=== PATIENT | male | born 1960 | race Caucasian/White ===

== ENCOUNTER 2017-01-11 03:03 | Emergency (ER) | payer OTHER, MEDICAID ==
[~2017-01-11] VITALS: Ht 170.2 cm; Wt 72.6 kg
[2017-01-11] MEDS ORDERED: fentaNYL INJECTION 100 MCG/2 ML AMP ONE ×2 (03:11→05:21)
[2017-01-11] MEDS ORDERED: NS IV 1000 ML 1,000 ML ONE (03:11)
[2017-01-11] MEDS ORDERED: ONDANSETRON 4 MG/2 ML (SDV) Z0FRAN ONE (03:11)
[2017-01-11] MEDS ORDERED: NS IV 1000 ML 1,000 ML IV ONE (03:17)
[2017-01-11] MEDS ORDERED: fentaNYL INJECTION 100 MCG/2 ML AMP IVP STA ×2 (03:17→05:29)
[2017-01-11 03:23] LABS: BASOPHILS % (AUTO) 0 % (0-10); EOSINOPHILS # (AUTO) 0.1 10^3/uL (0.0-0.3); EOSINOPHILS % (AUTO) 1 % (0-10); LYMPHOCYTES # (AUTO) 1.1 X 10^3 (1.0-4.0); LYMPHOCYTES % (AUTO) 19 % (12-44); MEAN CORPUSCULAR HEMOGLOBIN 32 PG (25-34); MEAN CORPUSCULAR HGB CONC 33 G/DL (32-36); MEAN CORPUSCULAR VOLUME 97 FL (80-99); MEAN PLATELET VOLUME 8.3 FL (7.4-10.4); MONOCYTES # (AUTO) 0.7 X 10^3 (0.0-1.0); MONOCYTES % (AUTO) 12 % (0-12); NEUTROPHILS # (AUTO) 3.8 X 10^3 (1.8-7.8); NEUTROPHILS % (AUTO) 68 % (42-75); PLATELET COUNT 199 10^3/uL (130-400); RED BLOOD COUNT 4.32 10^6/uL (4.35-5.85); RED CELL DISTRIBUTION WIDTH 14.7 % (10.0-14.5); WHITE BLOOD COUNT 5.6 10^3/uL (4.3-11.0)
--- NOTE | 2017-01-11 03:27 | ED General ---
General Stated Complaint: KIDNEY PAIN,STAGE 4 CA Source of Information: Patient Exam Limitations: No Limitations History of Present Illness Time Seen by Provider: 03:12 Initial Comments Here with report of left flank/kidney pain. States he feels like his kidney is stopped up and he is unable to urinate. Does have stage IV lung cancer with metastatic disease. Reports that he has one adrenal gland affected but is not sure which one. Does have history of kidney stones but states this does not feel like a kidney stone. Does report that the pain radiates down lower into the abdomen on the left side. Complains of nausea related to pain. Timing/Duration: 4-6 Hours Severity: Moderate, Severe Associated Systoms: No Chest Pain, No Cough, Nausea/Vomiting, Shortness of Air (chronic), No Weakness Allergies and Home Medications Allergies Coded Allergies: No Known Drug Allergies (Unverified , 01/11/17) Constitutional: see HPI, No chills, No fever EENTM: no symptoms reported Respiratory: see HPI, short of breath Cardiovascular: no symptoms reported Gastrointestinal: abdominal pain, nausea, No vomiting Genitourinary: see HPI, decreased output Musculoskeletal: see HPI, back pain, No joint swelling Skin: no symptoms reported Psychiatric/Neurological: No Symptoms Reported All Other Systems Reviewed Negative Unless Noted: Yes Past Kvtfwdt-Nkmnoe-Wwbugh Hx Patient Social History Alcohol Use: Denies Use Recreational Drug Use: No Smoking Status: Current Everyday Smoker Type Used: Cigarettes Recent Foreign Travel: No Surgeries History of Surgeries: Yes (brain set the brain) Respiratory History of Respiratory Disorde: No Cardiovascular History of Cardiac Disorders: No (Medical problems) Neurological History of Neurological Disord: No Genitourinary History of Genitourinary Disor: Yes Genitourinary Disorders: Kidney Stones Gastrointestinal History of Gastrointestinal Di: No Musculoskeletal History of Musculoskeletal Dis: No Cancer History of Cancer: Yes Cancer: Brain, Lung (()) Did You Recieve Any Treatments: Yes Type of Tx Receive: Chemotherapy, Surgical Intervention Psychosocial History of Psychiatric Problem: No Reviewed Nursing Assessment Reviewed/Agree w Nursing PMH: Yes Family Medical History Significant Family History: No Pertinent Family Hx Physical Exam Vital Signs Vital Sign - Last 12Hours 01/11/17 03:08 Temp 97.8 Pulse 101 Resp 24 B/P (MAP) 146/105 Pulse Ox 98 O2 Delivery Room Air Capillary Refill : General Appearance: WD/WN, Moderate Distress (pain related) HEENT: PERRL/EOMI, Pharynx Normal Neck: Non Tender, Supple Respiratory: Lungs Clear, Normal Breath Sounds Cardiovascular: Regular Rate, Rhythm, No Murmur Gastrointestinal: Non Tender, Soft Back: Normal Inspection, No CVA Tenderness, No Vertebral Tenderness Extremity: Normal Range of Motion, Non Tender Neurologic/Psychiatric: Alert, Oriented x3 Skin: Normal Color, Warm/Dry Progress/Results/Core Measures Results/Orders Lab Results Laboratory Tests Test 01/11/17 03:14 01/11/17 04:28 Range/Units White Blood Count 5.6 4.3-11.0 10^3/uL Red Blood Count 4.32 L 4.35-5.85 10^6/uL Hemoglobin 13.6 13.3-17.7 G/DL Hematocrit 42 40-54 % Mean Corpuscular Volume 97 80-99 FL Mean Corpuscular Hemoglobin 32 25-34 PG Mean Corpuscular Hemoglobin Concent 33 32-36 G/DL Red Cell Distribution Width 14.7 H 10.0-14.5 % Platelet Count 199 130-400 10^3/uL Mean Platelet Volume 8.3 7.4-10.4 FL Neutrophils (%) (Auto) 68 42-75 % Lymphocytes (%) (Auto) 19 12-44 % Monocytes (%) (Auto) 12 0-12 % Eosinophils (%) (Auto) 1 0-10 % Basophils (%) (Auto) 0 0-10 % Neutrophils # (Auto) 3.8 1.8-7.8 X 10^3 Lymphocytes # (Auto) 1.1 1.0-4.0 X 10^3 Monocytes # (Auto) 0.7 0.0-1.0 X 10^3 Eosinophils # (Auto) 0.1 0.0-0.3 10^3/uL Basophils # (Auto) 0.0 0.0-0.1 10^3/uL Sodium Level 138 135-145 MMOL/L Potassium Level 3.7 3.6-5.0 MMOL/L Chloride Level 103 98-107 MMOL/L Carbon Dioxide Level 22 21-32 MMOL/L Anion Gap 13 5-14 MMOL/L Blood Urea Nitrogen 8 7-18 MG/DL Creatinine 0.83 0.60-1.30 MG/DL Estimat Glomerular Filtration Rate > 60 BUN/Creatinine Ratio 10 Glucose Level 91 70-105 MG/DL Calcium Level 9.5 8.5-10.1 MG/DL Total Bilirubin 0.3 0.1-1.0 MG/DL Aspartate Amino Transf (AST/SGOT) 20 5-34 U/L Alanine Aminotransferase (ALT/SGPT) 17 0-55 U/L Alkaline Phosphatase 121 40-136 U/L Total Protein 7.2 6.4-8.2 GM/DL Albumin 3.6 3.2-4.5 GM/DL Urine Color YELLOW Urine Clarity CLEAR Urine pH 7 5-9 Urine Specific [place] 1.005 L 1.016-1.022 Urine Protein NEGATIVE NEGATIVE Urine Glucose (UA) NEGATIVE NEGATIVE Urine Ketones NEGATIVE NEGATIVE Urine Nitrite NEGATIVE NEGATIVE Urine Bilirubin NEGATIVE NEGATIVE Urine Urobilinogen NORMAL NORMAL MG/DL Urine Leukocyte Esterase NEGATIVE NEGATIVE Urine RBC (Auto) 5+ H NEGATIVE Urine RBC 2-5 H /HPF Urine WBC NONE /HPF Urine Crystals NONE /LPF Urine Bacteria NEGATIVE /HPF Urine Casts NONE /LPF Urine Mucus NEGATIVE /LPF Urine Culture Indicated NO My Orders Orders - CRISTY RINCON MD Fentanyl Injection (Sublimaze Injection (01/11/17 03:11) Ondansetron Injection (Zofran Injectio (01/11/17 03:11) Ns Iv 1000 Ml (Sodium Chloride 0.9%) (01/11/17 03:11) Cbc With Automated Diff (01/11/17 03:17) Comprehensive Metabolic Panel (01/11/17 03:17) Ua Culture If Indicated (01/11/17 03:17) Saline Lock/Iv-Start (01/11/17 03:17) Ns Iv 1000 Ml (Sodium Chloride 0.9%) (01/11/17 03:17) Fentanyl Injection (Sublimaze Injection (01/11/17 03:17) Ondansetron Injection (Zofran Injectio (01/11/17 03:30) Ct Chest/Abdomen/Pelvis W (01/11/17 03:46) Iohexol Injection (Omnipaque 350 Mg/Ml 1 (01/11/17 04:15) Ns (Ivpb) (Sodium Chloride 0.9% Ivpb Bag (01/11/17 04:15) Medications Given in ED Current Medications Medications Dose Ordered Sig/Anneliese Route Start Time Stop Time Status Last Admin Dose Admin Ondansetron HCl 8 mg ONCE ONCE IVP 01/11/17 03:30 01/11/17 03:31 DC 01/11/17 03:22 8 MG Sodium Chloride 1,000 ml @ 0 mls/hr Q0M ONCE IV 01/11/17 03:17 01/11/17 03:19 DC 01/11/17 03:21 1,000 MLS/HR Vital Signs/I&O Vital Sign - Last 12Hours 01/11/17 03:08 Temp 97.8 Pulse 101 Resp 24 B/P (MAP) 146/105 Pulse Ox 98 O2 Delivery Room Air Progress Note : Progress Note Seen and evaluated. IV, labs, UA, normal saline 1 L bolus, Zofran 8 mg IV and fentanyl 100 g IV ordered. Monitor patient. Pain markedly improved after fentanyl. 0450: Preliminary read on CT scan does show a stone in the distal left ureter near the bladder. Labs do not indicate serious dysfunction. We will repeat fentanyl dosing. Likely discharge home. I will write for outpatient breakthrough medicine of oxycodone due to new findings. Patient and family agree with plan. Departure Impression Impression: Primary Impression: Kidney stone on left side Additional Impression: Metastatic primary lung cancer Qualified Codes: C34.92 - Malignant neoplasm of unspecified part of left bronchus or lung Disposition: 01 HOME, SELF-CARE Condition: Stable Departure-Patient Inst. Decision time for Depature: 05:02 Referrals: VAN MEJIA MD (PCP) Primary Care Physician Patient Instructions: Kidney Stones (DC) Add. Discharge Instructions: Take medications as directed. Follow-up with your DrMickie in one to 2 days for recheck and further evaluation. Return for worse pain, fever, vomiting, weakness, breathing problems or other concerns as needed. Call [facility] today and discuss with them about the MRI that you're supposed to get and let them know that you had CT scan with contrast of the chest, abdomen and pelvis this morning. Drink plenty of fluids. Scripts Oxycodone HCl (Oxycodone HCl) 5 Mg Tablet 5 MG PO Q4H Y for BREAKTHROUGH PAIN, #15 TAB 0 Refills Prov: CRISTY RINCON MD 01/11/17 CRISTY RINCON MD Jan 11, 2017 03:27
[2017-01-11] MEDS ORDERED: ONDANSETRON 4 MG/2 ML (SDV) Z0FRAN IVP ONE (03:30)
[2017-01-11 03:41] LABS: ALANINE AMINOTRANSFERASE 17 U/L (0-55); ALBUMIN 3.6 GM/DL (3.2-4.5); ANION GAP 13 MMOL/L (5-14); ASPARTATE AMINO TRANSFERASE 20 U/L (5-34); BILIRUBIN,TOTAL 0.3 MG/DL (0.1-1.0); BLOOD UREA NITROGEN 8 MG/DL (7-18); BUN/CREATININE RATIO 10; CALCIUM 9.5 MG/DL (8.5-10.1); CARBON DIOXIDE 22 MMOL/L (21-32); CHLORIDE 103 MMOL/L (98-107); CREATININE SERUM 0.83 MG/DL (0.60-1.30); GFR ESTIMATED > 60; GLUCOSE 91 MG/DL (70-105); POTASSIUM 3.7 MMOL/L (3.6-5.0); SODIUM 138 MMOL/L (135-145); TOTAL PROTEIN 7.2 GM/DL (6.4-8.2)
[2017-01-11] MEDS ORDERED: IOHEXOL 350 MG/ML 100 ML (OMNIPAQUE 350) VIAL IV ONE (04:15)
[2017-01-11] MEDS ORDERED: NS 100 ML (IVPB) BAG IV ONE (04:15)
[2017-01-11 04:37] LABS: BILIRUBIN,URINE NEGATIVE (NEGATIVE); KETONES,URINE NEGATIVE (NEGATIVE); LEUKOCYTE ESTERASE ,URINE NEGATIVE (NEGATIVE); NITRITE,URINE NEGATIVE (NEGATIVE); PH,URINE 7 (5-9); PROTEIN,URINE NEGATIVE (NEGATIVE); UROBILINOGEN,URINE NORMAL (NORMAL)
[2017-01-11] MEDS ORDERED: OXYC-529 PO (05:04)
[2017-01-11 05:36] VITALS: BP 123/100
--- NOTE | 2017-01-11 07:59 | Diagnostic Imaging Report ---
PROCEDURE: CT chest, abdomen, and pelvis with contrast. TECHNIQUE: Multiple contiguous axial images were obtained through the chest, abdomen, and pelvis after the administration of intravenous contrast. INDICATION: Left-sided pain. History of lung cancer. COMPARISON: None. FINDINGS: Chest CT: There are innumerable scattered pulmonary nodules and masses throughout both lungs. The largest most dominant lesion is seen within the left lung apex measuring about 4.5 cm in size. This lesion involves and is causing some destructive change of the adjacent left second and third rib. Others range in size from a few millimeters up to several centimeters. Findings are highly suggestive of diffuse metastatic disease with possible primary lesion in the left upper lobe. There are multiple enlarged mediastinal and hilar lymph nodes. There is a 3.8-cm x 2.2-cm right hilar lymph node. The largest abnormal mediastinal lymph node appears low density and is seen within the prevascular region measuring 1.7 cm x 3.9 cm. There is an enlarged azygoesophageal recess node and a right cardiophrenic node. There is no pneumothorax or pleural fluid. Thoracic aorta appears unremarkable. Abdomen/pelvis CT: There is diffuse hepatic steatosis. No focal hepatic mass is seen. The portal vein enhances normally. The gallbladder is partially contracted which is nonspecific but may be postprandial. The pancreas and spleen appear unremarkable. There is a heterogeneous 3.7-cm left adrenal mass concerning for metastatic disease. The right adrenal gland appears unremarkable. There is a 2-mm stone in the distal left ureter at the ureterovesical junction with mild left hydroureter and hydronephrosis. There is a nonspecific low-density lesion in the superior left renal cortex which appears greater than fluid density. This may represent a high-density cyst; however, a renal cell neoplasm or metastatic lesion would be difficult to entirely exclude. There is a small fat-containing umbilical hernia. There is no evidence of appendicitis or other acute focal inflammatory process in the pelvis. There is no free air, adenopathy, or ascites in the abdomen. There is atherosclerosis of the abdominal aorta. There are degenerative changes in the spine. IMPRESSION: 1. In the chest there are innumerable pulmonary nodules and masses throughout both lungs concerning for diffuse metastatic disease. The most dominant lesion measures 4.5 cm seen within the left upper lobe. There are also enlarged mediastinal and hilar nodes also concerning for malignancy. The left upper lobe masses involving the left second and third rib with bony destruction. 2. A 3.7-cm left adrenal mass concerning for metastatic disease. 3. A 2-mm stone in the left ureter at the ureterovesical junction with mild obstructive changes. Indeterminate small hypodense lesion, superior left renal cortex, as described. 4. Diffuse hepatic steatosis. Agree with [facility] interpretation. Dictated by: Dictated on workstation # [id number]
[2017-01-24] MEDS ORDERED: PRD20T PO (08:09)
[2017-01-24] MEDS ORDERED: METR500T PO (08:09)
== END 2017-01-11 05:36 | disposition home or self-care (01) ==
LOC: ER 03:07
DX: N20.0 Calculus of kidney (principal); C34.90 Malignant neoplasm of unspecified part of unspecified bronchus or lung; C79.31 Secondary malignant neoplasm of brain; F17.210 Nicotine dependence, cigarettes, uncomplicated
CPT/HCPCS: 36415; 71260; 74177; 80053; 81000; 85025; 96361; 96374; 96375; 96376

== ENCOUNTER 2017-01-21 14:25 | Inpatient (IN) | payer OTHER, MEDICAID ==
[~2017-01-21] VITALS: Ht 170.2 cm; Wt 70.8 kg
[~2017-01-21 14:25] MED LIST: OXYC-529 PO
[2017-01-21] MEDS ORDERED: fentaNYL INJECTION 100 MCG/2 ML AMP IVP ONE ×2 (15:00→16:00)
[2017-01-21] MEDS ORDERED: ONDANSETRON 4 MG/2 ML (SDV) Z0FRAN IVP ONE (15:00)
[2017-01-21] MEDS ORDERED: NS IV 1000 ML 1,000 ML IV ONE (15:00)
[2017-01-21 15:14] LABS: BASOPHILS % (AUTO) 0 % (0-10); EOSINOPHILS # (AUTO) 0.1 10^3/uL (0.0-0.3); EOSINOPHILS % (AUTO) 1 % (0-10); LYMPHOCYTES # (AUTO) 0.8 X 10^3 (1.0-4.0); LYMPHOCYTES % (AUTO) 8 % (12-44); MEAN CORPUSCULAR HEMOGLOBIN 32 PG (25-34); MEAN CORPUSCULAR HGB CONC 34 G/DL (32-36); MEAN CORPUSCULAR VOLUME 94 FL (80-99); MEAN PLATELET VOLUME 8.9 FL (7.4-10.4); MONOCYTES # (AUTO) 0.5 X 10^3 (0.0-1.0); MONOCYTES % (AUTO) 5 % (0-12); NEUTROPHILS # (AUTO) 8.6 X 10^3 (1.8-7.8); NEUTROPHILS % (AUTO) 86 % (42-75); PLATELET COUNT 269 10^3/uL (130-400); RED BLOOD COUNT 5.06 10^6/uL (4.35-5.85); RED CELL DISTRIBUTION WIDTH 14.4 % (10.0-14.5)
[2017-01-21 15:41] LABS: EOSINOPHILS % (MANUAL) 2 %; LYMPHOCYTES % (MANUAL) 12 %; NEUTROPHILS % (MANUAL) 79 %; REACTIVE LYMPHOCYTES 2 %
[2017-01-21 16:05] LABS: ALANINE AMINOTRANSFERASE 37 U/L (0-55); ALBUMIN 3.5 GM/DL (3.2-4.5); ANION GAP 12 MMOL/L (5-14); ASPARTATE AMINO TRANSFERASE 24 U/L (5-34); BILIRUBIN,TOTAL 0.8 MG/DL (0.1-1.0); BLOOD UREA NITROGEN 16 MG/DL (7-18); BUN/CREATININE RATIO 20; CALCIUM 9.1 MG/DL (8.5-10.1); CARBON DIOXIDE 20 MMOL/L (21-32); CHLORIDE 101 MMOL/L (98-107); CREATININE SERUM 0.81 MG/DL (0.60-1.30); GFR ESTIMATED > 60; GLUCOSE 121 MG/DL (70-105); MAGNESIUM 1.8 MG/DL (1.8-2.4); SODIUM 133 MMOL/L (135-145); TOTAL PROTEIN 7.2 GM/DL (6.4-8.2)
[2017-01-21] MEDS ORDERED: NS 100 ML (IVPB) BAG IV ONE (17:00)
[2017-01-21] MEDS ORDERED: IOHEXOL 350 MG/ML 100 ML (OMNIPAQUE 350) VIAL IV ONE (17:00)
[2017-01-21 17:19] LABS: BILIRUBIN,URINE NEGATIVE (NEGATIVE); KETONES,URINE 1+ (NEGATIVE); LEUKOCYTE ESTERASE ,URINE 1+ (NEGATIVE); NITRITE,URINE NEGATIVE (NEGATIVE); PH,URINE 5 (5-9); PROTEIN,URINE 2+ (NEGATIVE); UROBILINOGEN,URINE 4 MG/DL (NORMAL)
--- NOTE | 2017-01-21 17:28 | ED Abdominal Pain ---
General Chief Complaint: Abdominal/GI Problems Stated Complaint: CONSTIPATED Nursing Triage Note: c/o constipation, patient reports having an enema yesterday with minimal results Sepsis Screen: No Definite Risk Source of Information: Patient, Old Records Exam Limitations: No Limitations History of Present Illness Time Seen By Provider: 14:54 Initial Comments This 56-year-old man presents to emergency room with complaints of left lower quadrant pain which she presumes is from constipation. This woke him about an hour ago and it was severe. He is in distress because of the pain on arrival. Patient has metastatic lung cancer. He has metastases throughout the lungs, in the ribs, and adrenal gland. Patient also had a CT performed January 11 of the chest, abdomen and pelvis that additionally noted a small ureteral stone on the left causing mild obstruction. He believes he passed that stone already. Patient last had a small bowel movement on , January 17. He received an enema yesterday with minimal results. He had vomiting today which he believes contained some blood. Patient is currently receiving chemotherapy treatments at [facility] which she reports her palliative. Dr. Jacobo is his primary care provider. Allergies and Home Medications Allergies Coded Allergies: No Known Drug Allergies (Unverified , 01/11/17) Home Medications Oxycodone HCl 5 Mg Tablet, 5 MG PO Q4H PRN for BREAKTHROUGH PAIN, #15 Ref 0 Prescribed by: CRISTY RINCON on 01/11/17 0504 Review of Systems Constitutional: no symptoms reported EENTM: No Symptoms Reported Respiratory: No Symptoms Reported Cardiovascular: No Symptoms Reported Gastrointestinal: See HPI Genitourinary: See HPI Musculoskeletal: no symptoms reported Skin: no symptoms reported Psychiatric/Neurological: No Symptoms Reported Endocrine: No Symptoms Reported Hematologic/Lymphatic: See HPI Past Ihmlpde-Weblcx-Iejsvs Hx Patient Social History Alcohol Use: Denies Use Recreational Drug Use: No Smoking Status: Current Everyday Smoker Type Used: Cigarettes Recent Foreign Travel: No Contact w/Someone Who Travel: No Recent Infectious Disease Expo: No Surgeries History of Surgeries: Yes (anal fistula surgeries) Surgeries: Orthopedic (right ankle fracture repair with plates and screws) Respiratory History of Respiratory Disorde: Yes (lung cancer) Cardiovascular History of Cardiac Disorders: No (Medical problems) Neurological History of Neurological Disord: No Genitourinary History of Genitourinary Disor: Yes Genitourinary Disorders: Kidney Stones Gastrointestinal History of Gastrointestinal Di: Yes Gastrointestinal Disorders: Chronic Constipation Musculoskeletal History of Musculoskeletal Dis: No Endocrine History of Endocrine Disorders: No Cancer History of Cancer: Yes Cancer: Brain, Lung Did You Recieve Any Treatments: Yes Type of Tx Receive: Chemotherapy, Surgical Intervention Psychosocial History of Psychiatric Problem: No Family Medical History Significant Family History: No Pertinent Family Hx Physical Exam Vital Signs VS - Last 72 Hours, by Label 01/21/17 14:30 Temp 96.7 Pulse 110 Resp 18 B/P (MAP) 141/111 Pulse Ox 94 Capillary Refill : Less Than 3 Seconds General Appearance: WD/WN, moderate distress HEENT: PERRL/EOMI, other (partial hair loss on the right) Neck: normal inspection Respiratory: lungs clear, normal breath sounds, no respiratory distress, no accessory muscle use Cardiovascular: regular rate, rhythm, no edema, no murmur Gastrointestinal: soft, abnormal bowel sounds (decreased bowel sounds), tenderness (left lower quadrant) Extremities: normal inspection, no pedal edema Male: normal genitalia, No no hernia, No erythema, No inguinal tenderness, No testicular tenderness Neurologic/Psychiatric: ben day artist II-XII nml as tested, no motor/sensory deficits, alert, normal mood/affect, oriented x 3 Skin: normal color, warm/dry Progress/Results/Core Measures Results/Orders Lab Results Laboratory Tests Test 01/21/17 13:40 01/21/17 15:05 01/21/17 17:08 01/21/17 17:50 Range/Units Lipase 19 8-78 U/L White Blood Count 10.0 4.3-11.0 10^3/uL Red Blood Count 5.06 4.35-5.85 10^6/uL Hemoglobin 16.1 13.3-17.7 G/DL Hematocrit 47 40-54 % Mean Corpuscular Volume 94 80-99 FL Mean Corpuscular Hemoglobin 32 25-34 PG Mean Corpuscular Hemoglobin Concent 34 32-36 G/DL Red Cell Distribution Width 14.4 10.0-14.5 % Platelet Count 269 130-400 10^3/uL Mean Platelet Volume 8.9 7.4-10.4 FL Neutrophils (%) (Auto) 86 H 42-75 % Lymphocytes (%) (Auto) 8 L 12-44 % Monocytes (%) (Auto) 5 0-12 % Eosinophils (%) (Auto) 1 0-10 % Basophils (%) (Auto) 0 0-10 % Neutrophils # (Auto) 8.6 H 1.8-7.8 X 10^3 Lymphocytes # (Auto) 0.8 L 1.0-4.0 X 10^3 Monocytes # (Auto) 0.5 0.0-1.0 X 10^3 Eosinophils # (Auto) 0.1 0.0-0.3 10^3/uL Basophils # (Auto) 0.0 0.0-0.1 10^3/uL Neutrophils % (Manual) 79 % Lymphocytes % (Manual) 12 % Monocytes % (Manual) 5 % Eosinophils % (Manual) 2 % Reactive Lymphocytes 2 % Blood Morphology Comment NORMAL Sodium Level 133 L 135-145 MMOL/L Potassium Level 4.0 3.6-5.0 MMOL/L Chloride Level 101 98-107 MMOL/L Carbon Dioxide Level 20 L 21-32 MMOL/L Anion Gap 12 5-14 MMOL/L Blood Urea Nitrogen 16 7-18 MG/DL Creatinine 0.81 0.60-1.30 MG/DL Estimat Glomerular Filtration Rate > 60 BUN/Creatinine Ratio 20 Glucose Level 121 H 70-105 MG/DL Calcium Level 9.1 8.5-10.1 MG/DL Magnesium Level 1.8 1.8-2.4 MG/DL Total Bilirubin 0.8 0.1-1.0 MG/DL Aspartate Amino Transf (AST/SGOT) 24 5-34 U/L Alanine Aminotransferase (ALT/SGPT) 37 0-55 U/L Alkaline Phosphatase 112 40-136 U/L Total Protein 7.2 6.4-8.2 GM/DL Albumin 3.5 3.2-4.5 GM/DL Urine Color CATA H Urine Clarity CLEAR Urine pH 5 5-9 Urine Specific [place] 1.020 1.016-1.022 Urine Protein 2+ H NEGATIVE Urine Glucose (UA) 1+ H NEGATIVE Urine Ketones 1+ H NEGATIVE Urine Nitrite NEGATIVE NEGATIVE Urine Bilirubin NEGATIVE NEGATIVE Urine Urobilinogen 4 H NORMAL MG/DL Urine Leukocyte Esterase 1+ H NEGATIVE Urine RBC (Auto) 3+ H NEGATIVE Urine RBC NONE /HPF Urine WBC 0-2 /HPF Urine Crystals NONE /LPF Urine Bacteria TRACE /HPF Urine Casts NONE /LPF Urine Mucus MODERATE H /LPF Urine Culture Indicated NO Prothrombin Time 12.5 12.2-14.7 SEC INR Comment 0.9 0.8-1.4 Activated Partial Thromboplast Time 28 24-35 SEC My Orders Orders - ROYA ZIEGLER MD Cbc With Automated Diff (01/21/17 15:00) Comprehensive Metabolic Panel (01/21/17 15:00) Magnesium (01/21/17 15:00) Ua Culture If Indicated (01/21/17 15:00) Saline Lock/Iv-Start (01/21/17 15:00) Ns Iv 1000 Ml (Sodium Chloride 0.9%) (01/21/17 15:00) Ondansetron Injection (Zofran Injectio (01/21/17 15:00) Fentanyl Injection (Sublimaze Injection (01/21/17 15:00) Manual Differential (01/21/17 15:05) Lipase (01/21/17 15:44) Fentanyl Injection (Sublimaze Injection (01/21/17 16:00) Ct Abdomen/Pelvis W (01/21/17 16:28) Iohexol Injection (Omnipaque 350 Mg/Ml 1 (01/21/17 17:00) Ns (Ivpb) (Sodium Chloride 0.9% Ivpb Bag (01/21/17 17:00) Protime With Inr (01/21/17 17:28) Partial Thromboplastin Time (01/21/17 17:28) Morphine Injection (Morphine Injection (01/21/17 18:00) Ketorolac Injection (Toradol Injection) (01/21/17 18:15) Medications Given in ED Current Medications Medications Dose Ordered Sig/Anneliese Route Start Time Stop Time Status Last Admin Dose Admin Fentanyl Citrate 100 mcg ONCE ONCE IVP 01/21/17 15:00 01/21/17 15:02 DC 01/21/17 15:10 100 MCG Fentanyl Citrate 100 mcg ONCE ONCE IVP 01/21/17 16:00 01/21/17 16:01 DC 01/21/17 16:01 100 MCG Iohexol 100 ml ONCE ONCE IV 01/21/17 17:00 01/21/17 17:01 DC 01/21/17 17:08 100 ML Morphine Sulfate 8 mg ONCE ONCE IVP 01/21/17 18:00 01/21/17 18:01 DC 01/21/17 18:04 8 MG Ondansetron HCl 8 mg ONCE ONCE IVP 01/21/17 15:00 01/21/17 15:02 DC 01/21/17 15:10 8 MG Sodium Chloride 100 ml ONCE ONCE IV 01/21/17 17:00 01/21/17 17:01 DC 01/21/17 17:09 80 ML Sodium Chloride 1,000 ml @ 0 mls/hr Q0M ONCE IV 01/21/17 15:00 01/21/17 15:02 DC 01/21/17 15:10 0 MLS/HR Vital Signs/I&O Vital Sign - Last 12Hours 01/21/17 14:30 Temp 96.7 Pulse 110 Resp 18 B/P (MAP) 141/111 Pulse Ox 94 Blood Pressure Mean: 121 Progress Note #1: Time: 16:30 Progress Note Patient received 2 doses of fentanyl 100 g to control his pain. Labs revealed no significant abnormalities. CT of the abdomen and pelvis was ordered for further evaluation. Progress Note #2: Progress Note Patient's pain did rebound prior to admission. Morphine 8 mg IV was administered which did calm his pain. Diagnostic Imaging Diagonstic Imaging: CT Plain Films/CT/US/NM/MRI: abdomen, pelvis Comments CT abdomen and pelvis viewed by me and report reviewed. See report below: NAME: ESTRELLA CASTELLANOS MED REC#: [id number] PT STATUS: REG ER : 1960 PHYSICIAN: ROYA ZIEGLER MD ADMIT DATE: 01/21/17/ER Signed Date of Exam: 01/21/17 CT ABDOMEN/PELVIS W PROCEDURE: CT abdomen and pelvis with contrast. TECHNIQUE: Multiple contiguous axial images were obtained through the abdomen and pelvis after administration of intravenous contrast. INDICATION: Left-sided abdominal pain, possible kidney stone. COMPARISON: CT chest 01/11/17. FINDINGS: Known pulmonary masses and nodules are seen in both lung bases. There is stable-appearing right hilar lymphadenopathy. Known left adrenal mass is again present and unchanged. The liver, spleen, gallbladder, pancreas, adrenal glands, kidneys, vascular structures are grossly unremarkable. There is some new circumferential thickening of a few small bowel loops in the mid left anterior abdomen with some associated edema in the surrounding mesentery. This could represent a focal inflammatory or infectious process. There is no bowel obstruction. The small bowel loops in this region are slightly dilated indicating reactive ileus. The colon and distal small bowel are grossly normal. There is no free air, free fluid or abscess. There is prostate enlargement. Distal ureters and urinary bladder are grossly unremarkable. Benign right posterolateral 8 mm urinary bladder diverticulum is present. No pelvic lymphadenopathy is seen. Osseous structures are age-appropriate. IMPRESSION: 1. Focal left mid anterior abdomen small bowel wall thickening and inflammatory change, possibly inflammatory bowel disease. Doubt this represents vascular etiology given the lack of atherosclerotic disease within the SMA or aorta. 2. Reactive small bowel ileus. 3. No obstruction, free air, free fluid or abscess. 4. Known left adrenal mass, pulmonary nodules and masses and hilar lymphadenopathy. 5. Prostate enlargement. Dictated by: Dictated on workstation # [id number] Dict: 01/21/171723 Trans: 01/21/171751 Interpreted by: CHANDAN PERES Electronically signed by: CHANDAN PERES 01/21/17 175 Departure Communication (Admissions) Time/Spoke to Admitting Phy: 18:[address] Jacobo agrees to admission for observation and pain control. Labs and CT were reviewed with her. She requests ELECTRICIAN RESEARCH for pain control in addition to the Toradol. ELECTRICIAN RESEARCH orders were added to the bridging orders. Impression Impression: Primary Impression: Intractable abdominal pain Additional Impressions: Nausea and vomiting Qualified Codes: R11.2 - Nausea with vomiting, unspecified Metastatic cancer Ileus Disposition: ADMITTED INPATIENT Condition: Improved Admissions Decision to Admit Reason: Admit from ER (General) Decision to Admit/Date: Jan 21, 2017 Time/Decision to Admit Time: 18:10 Departure-Patient Inst. Referrals: VAN JACOBO MD (PCP/Family) Primary Care Physician ROYA ZIEGLER MD Jan 21, 2017 17:28
[2017-01-21 17:29] LABS: WBC,URINE 0-2 /HPF
--- NOTE | 2017-01-21 17:37 | Diagnostic Imaging Report ---
PROCEDURE: CT abdomen and pelvis with contrast. TECHNIQUE: Multiple contiguous axial images were obtained through the abdomen and pelvis after administration of intravenous contrast. INDICATION: Left-sided abdominal pain, possible kidney stone. COMPARISON: CT chest 01/11/17. FINDINGS: Known pulmonary masses and nodules are seen in both lung bases. There is stable-appearing right hilar lymphadenopathy. Known left adrenal mass is again present and unchanged. The liver, spleen, gallbladder, pancreas, adrenal glands, kidneys, vascular structures are grossly unremarkable. There is some new circumferential thickening of a few small bowel loops in the mid left anterior abdomen with some associated edema in the surrounding mesentery. This could represent a focal inflammatory or infectious process. There is no bowel obstruction. The small bowel loops in this region are slightly dilated indicating reactive ileus. The colon and distal small bowel are grossly normal. There is no free air, free fluid or abscess. There is prostate enlargement. Distal ureters and urinary bladder are grossly unremarkable. Benign right posterolateral 8 mm urinary bladder diverticulum is present. No pelvic lymphadenopathy is seen. Osseous structures are age-appropriate. IMPRESSION: 1. Focal left mid anterior abdomen small bowel wall thickening and inflammatory change, possibly inflammatory bowel disease. Doubt this represents vascular etiology given the lack of atherosclerotic disease within the SMA or aorta. 2. Reactive small bowel ileus. 3. No obstruction, free air, free fluid or abscess. 4. Known left adrenal mass, pulmonary nodules and masses and hilar lymphadenopathy. 5. Prostate enlargement. Dictated by: Dictated on workstation # [id number]
[2017-01-21] MEDS ORDERED: morphine INJ 10 MG/ML 1ML (SYR OR VIAL) IVP ONE (18:00)
[2017-01-21 18:06] LABS: INR 0.9 (0.8-1.4); PROTHROMBIN TIME PATIENT 12.5 SEC (12.2-14.7)
[2017-01-21] MEDS ORDERED: KETOROLAC 30 MG/ML VIAL IVP ONE (18:15)
[2017-01-21] MEDS ORDERED: morphine PCA 30 MG/30 ML VIAL IV PRN (19:00)
[2017-01-21] MEDS ORDERED: NS IV 1000 ML 1,000 ML IV SCH (19:24)
[2017-01-21] MEDS ORDERED: diphenhydrAMINE 50 MG/ML INJ (BENADRYL) IV PRN ×2 (19:30)
[2017-01-21] MEDS ORDERED: ONDANSETRON 4 MG/2 ML (SDV) Z0FRAN IV PRN ×2 (19:30)
[2017-01-21] MEDS ORDERED: NALOXONE 0.4 MG/ML 1 ML (NARCAN) VIAL IV PRN ×2 (19:30)
[2017-01-21] MEDS ORDERED: NS IV 500 ML PCA CARRIER FLUID IV SCH (19:30)
[2017-01-21] MEDS ORDERED: KETOROLAC 30 MG/ML VIAL IV PRN (19:30)
[2017-01-21] MEDS ORDERED: METOCLOPRAMIDE INJ 10 MG/2 ML (REGLAN) IV PRN ×2 (19:30)
[2017-01-21] MEDS: PANTOPRAZOLE 40 MG/10 ML (PROTONIX) VIAL IV SCH (19:56)
[2017-01-21] MEDS: D5 1/2 NS W/KCL 20 MEQ/L 1,000 ML IV SCH (19:57)
[2017-01-21] MEDS: morphine PCA 30 MG/30 ML VIAL IV PRN (20:06)
[2017-01-22 00:22] VITALS: BP 119/73
[2017-01-22] MEDS: D5 1/2 NS W/KCL 20 MEQ/L 1,000 ML IV SCH ×3 (04:19→21:31)
[2017-01-22 04:24] VITALS: BP 116/74
[2017-01-22] MEDS: morphine PCA 30 MG/30 ML VIAL IV PRN ×2 (07:15→20:00)
[2017-01-22 07:25] VITALS: BP 119/79
[2017-01-22] MEDS: SENNA W/DOCUSATE (SENOKOT S) TABLET PO SCH (08:31)
[2017-01-22] MEDS: PANTOPRAZOLE 40 MG/10 ML (PROTONIX) VIAL IV SCH ×2 (08:31→21:27)
[2017-01-22] MEDS ORDERED: FOLI1TAB24 PO (08:55)
[2017-01-22] MEDS ORDERED: HYDR-3820 PO (08:55)
[2017-01-22] MEDS ORDERED: OXYC-529 PO (08:55)
[2017-01-22] MEDS ORDERED: SENN-1 PO (09:00)
[2017-01-22] MEDS ORDERED: SENNA W/DOCUSATE (SENOKOT S) TABLET PO SCH (09:00)
[2017-01-22] MEDS ORDERED: FOLIC ACID 1 MG TAB PO NR (09:15)
--- NOTE | 2017-01-22 09:16 | History & Physicial ---
History of Present Illness History of Present Illness Reason for visit/HPI PT IS A 56 Y/O MALE WHO IS KNOWN TO ME FROM CLINIC. HE HAS HISTORY OF NEWLY DIAGNOSED METASTATIC LUNG CANCER. HE HAS METASTATIC DISEASE TO HIS BRAIN, ABDOMEN, LYMPH SYSTEM. HE STATES THAT HE WAS NOT FEELING WELL ON SATURDAY AFTER RETURNING TO HOME FROM HIS CHEMOTHERAPY. HE STATES THAT HE WAS FEELING "OFF" ON SATURDAY AND SATURDAY AND SATURDAY. HE STATES THAT HE HAD STARTED TO DEVELOP ABDOMINAL PAIN ON THE LEFT , THOUGHT PERHAPS THAT HE HAD A KIDNEY STONE, BUT WAS FOUND TO HAVE AN ILEUS AND ENTERITIS ON CT SCAN THROUGH THE EMERGENCY DEPARTMENT. HE WAS UNABLE TO GO HOME DUE TO SEVERE PAIN, AND WAS ADMITTED TO THE HOSPITAL FOR IV PAIN MEDICATION , IV HYDRATION, AND MONITORING OF ABDOMINAL SYMPTOMS. Date of Admission Jan 21, 2017 at 18:28 Time Seen by Provider: 08:45 Attending Physician Van Jacobo MD Admitting Physician Van Jacobo MD Consult Allergies and Home Medications Allergies Coded Allergies: No Known Drug Allergies (Unverified , 01/11/17) Home Medications Folic Acid 1 Mg Tablet, 1 MG PO DAILY, (Reported) Hydrocodone/Acetaminophen 1 Each Tablet, 1-2 TAB PO Q6H PRN for PAIN-MODERATE, ( Reported) Oxycodone HCl 5 Mg Tablet, 5 MG PO Q4H PRN for BREAKTHROUGH PAIN, (Reported) Sennosides/Docusate Sodium 1 Each Tablet, 1 TAB PO DAILY PRN for CONSTIPATION- 6TH LINE, (Reported) Past Hxuhprq-Tgnqnr-Nigede Hx Patient Social History Marrital Status: (IN THE PROCESS OF DIVORCE), Living Status: LIVES WITH HIS MOM IN [place] Employed/Student: unemployed (DUE TO METASTATIC LUNG CANCER - 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) Alcohol Use: Denies Use Recreational Drug Use: No Smoking Status: Current Everyday Smoker Type Used: Cigarettes 2nd Hand Smoke Exposure: Yes Physical Abuse Screen: No Sexual Abuse: No Recent Foreign Travel: No Contact w/other who traveled: No Recent Infectious Disease Expo: No Seasonal Allergies Seasonal Allergies: No Surgeries Yes (anal fistula surgeries) Orthopedic (right ankle fracture repair with plates and screws) Respiratory Yes (lung cancer) Currently Using CPAP: No Currently Using BIPAP: No Cardiovascular No Neurological Yes (BRAIN TUMORS) Reproductive System Hx Reproductive Disorders: No Sexually Transmitted Disease: No HIV/AIDS: No Genitourinary Yes Kidney Stones Gastrointestinal Yes Chronic Constipation Musculoskeletal No Endocrine History of Endocrine Disorders: No HEENT History of HEENT Disorders: No Loss of Vision: Denies Hearing Impairment: Denies 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) Brain, Lung Did You Recieve Any Treatments: Yes Type of Treatment: Chemotherapy, Radiation Psychosocial History of Psychiatric Problem: No Integumentary History of Skin or Integumenta: No Blood Transfusions History of Blood Disorders: No Family Medical History Significant Family History: Heart Disease, Hypertension Family Hx: Constitutional: No chills, No diaphoresis, No fever, malaise, weakness EENTM: hoarseness, No mouth pain, No throat pain, No throat swelling Respiratory: cough, dyspnea on exertion, short of breath Cardiovascular: No chest pain, No edema, No palpitations Gastrointestinal: abdominal pain (LLQ), No constipation, No diarrhea, No dysphagia, No heartburn, No nausea, No vomiting, other (CHRONIC UMBILICAL HERNIA ) Genitourinary: No dysuria, No frequency, No incontinence Musculoskeletal: No back pain, No muscle weakness Skin: no symptoms reported Psychiatric/Neurological: Denies Anxiety, Denies Depressed All Other Systems Reviewed Negative Unless Noted: Yes Physical Exam Vital Signs Vital Sign - Last 12Hours 01/21/17 01/21/17 14:30 19:40 Temp 96.7 Pulse 110 Resp 18 B/P (MAP) 141/111 Pulse Ox 94 O2 Delivery Room Air Capillary Refill : Less Than 3 Seconds General Appearance: WD/WN, Mild Distress Eyes: Bilateral Eye Normal Inspection, Bilateral Eye PERRL, Bilateral Eye EOMI HEENT: PERRL/EOMI, Pharynx Normal Neck: Full Range of Motion, Supple Respiratory: Chest Non Tender, No Accessory Muscle Use, No Respiratory Distress , No Crackles, Decreased Breath Sounds (IN BASES) Cardiovascular: Regular Rate, Rhythm, No Edema Gastrointestinal: Soft, Tenderness (LLQ - ACUTELY TENDER TO PALPATION AND ALSO TO PERCUSSION) Rectal: Deferred Back: Normal Inspection Extremity: Normal Capillary Refill, Non Tender, No Calf Tenderness, No Pedal Edema Neurologic/Psychiatric: Alert, Oriented x3, No Motor/Sensory Deficits, Normal Mood/Affect Skin: Warm/Dry, Other (SKIN CHANGES TO FOREHEAD/SCALP ON RIGHT [place]) Lymphatic: No Adenopathy Assessment/Plan Assessment and Plan ILEUS/ENTERITIS SEVERE ABDOMINAL PAIN METASTATIC LUNG CANCER CHRONIC TOBACCOISM ILEUS WITH SEVERE ABDOMINAL PAIN - LIQUID DIET - START ON FLAGYL IV, CONTINUE WITH IV FLUIDS, MONITOR ABDOMINAL SYMPTOMS. - DISCUSSED WITH DR. WILCOX - HE WILL SEE THE PATIENT TODAY - HE HAS RECOMMENDED IV STEROIDS, MONITOR SYMPTOMS, CONTINUE WITH FLAGYL AND CLOSE MONITORING. METASTATIC LUNG CANCER - SUPPORTIVE CARE. CONTINUE WITH PALLIATIVE CHEMOTHERAPY. CHRONIC TOBACCOISM - SUPPORTIVE CARE WHILE IN HOSPITAL Problems: Admission Diagnosis ILEUS/ENTERITIS SEVERE ABDOMINAL PAIN METASTATIC LUNG CANCER CHRONIC TOBACCOISM Clinical Quality Measures DVT/VTE Risk/Contraindication: Risk Factor Score Per Nursin RFS Level Per Nursing on Admit: 4+=Very High VAN JACOBO MD Jan 22, 2017 09:16
[2017-01-22] MEDS ORDERED: methylPREDNISolone 40 MG/ML (Solu-MEDROL) VIAL IV NR (09:30)
[2017-01-22] MEDS: metroNIDAZOLE 500MG/100ML IVPB 100 ML IV SCH ×2 (09:47→16:54)
[2017-01-22 12:00] VITALS: BP 136/76
[2017-01-22 16:00] VITALS: BP 131/89
--- NOTE | 2017-01-22 18:49 | Consultation ---
History of Present Illness History of Present Illness Patient Consulted On(josiah/time) 01/22/17 18:43 Date Seen by Provider: Jan 22, 2017 Time Seen by Provider: 15:00 History of Present Illness As requested by Dr. Jacobo for left lower quadrant abdominal pain. Patient is a 56-year-old male with metastatic lung cancer. Yesterday he began having sharp left lower quadrant abdominal pain. Patient states that the pain continued to worsen. Patient states movement makes the pain significantly worse and pain medications only thing really keeping the pain tolerable. He was having 10 out of 10 pain. It's sharp in nature. No radiation of the pain. Patient states that he did have some nausea and vomiting. His last chemotherapy last week. Patient is tolerating liquid diet at this time. He had a CT scan performed which demonstrated the small bowel to be thickened with some inflammatory changes which appear to be more the left lower quadrant where he is describing his pain. This could be related to inflammatory bowel disease no obstruction, see CT scan report for full dictation. Allergies and Home Medications Allergies Coded Allergies: No Known Drug Allergies (Unverified , 01/11/17) Home Medications Folic Acid 1 Mg Tablet, 1 MG PO DAILY, (Reported) Hydrocodone/Acetaminophen 1 Each Tablet, 1-2 TAB PO Q6H PRN for PAIN-MODERATE, ( Reported) Oxycodone HCl 5 Mg Tablet, 5 MG PO Q4H PRN for BREAKTHROUGH PAIN, (Reported) Sennosides/Docusate Sodium 1 Each Tablet, 1 TAB PO DAILY PRN for CONSTIPATION- 6TH LINE, (Reported) Past Pcjnati-Uahzig-Oswwcg Hx Patient Social History Alcohol Use: Denies Use Recreational Drug Use: No Smoking Status: Current Everyday Smoker Type Used: Cigarettes 2nd Hand Smoke Exposure: Yes Recent Foreign Travel: No Contact w/Someone Who Travel: No Recent Infectious Disease Expo: No Physical Abuse Screen: No Sexual Abuse: No Seasonal Allergies Seasonal Allergies: No Surgeries History of Surgeries: Yes (anal fistula surgeries) Surgeries: Orthopedic (right ankle fracture repair with plates and screws) Respiratory History of Respiratory Disorde: Yes (lung cancer) Cardiovascular History of Cardiac Disorders: No Neurological History of Neurological Disord: Yes (BRAIN TUMORS) Reproductive System Hx Reproductive Disorders: No Sexually Transmitted Disease: No HIV/AIDS: No Genitourinary History of Genitourinary Disor: Yes Genitourinary Disorders: Kidney Stones Gastrointestinal History of Gastrointestinal Di: Yes Gastrointestinal Disorders: Chronic Constipation Musculoskeletal History of Musculoskeletal Dis: No Endocrine History of Endocrine Disorders: No HEENT History of HEENT Disorders: No Loss of Vision: Denies Hearing Impairment: Denies Cancer History of Cancer: Yes (stg IV non-small cell lung CA with mets) Cancer: Brain, Lung Psychosocial History of Psychiatric Problem: No Integumentary History of Skin or Integumenta: No Blood Transfusions History of Blood Disorders: No Family Medical History Significant Family History: Heart Disease, Hypertension Family Medial History: Review of Systems-General Constitutional: no symptoms reported EENTM: no symptoms reported Respiratory: no symptoms reported Cardiovascular: no symptoms reported Gastrointestinal: see HPI Genitourinary: no symptoms reported Musculoskeletal: no symptoms reported Skin: no symptoms reported Psychiatric/Neurological: No Symptoms Reported Physical Exam-General Problems Physical Exam Vital Signs Vital Sign - Last 12Hours 01/21/17 01/21/17 14:30 19:40 Temp 96.7 Pulse 110 Resp 18 B/P (MAP) 141/111 Pulse Ox 94 O2 Delivery Room Air Capillary Refill : Less Than 3 Seconds General Appearance: no apparent distress (Laying in bed) HEENT: PERRL/EOMI, normal ENT inspection Neck: supple Respiratory: no respiratory distress, no accessory muscle use Cardiovascular: regular rate, rhythm Gastrointestinal: soft, no organomegaly, tenderness (Left lower quadrant), other (Reducible umbilical hernia) Rectal: deferred Back: normal inspection Extremities: normal range of motion, non-tender Neurologic/Psychiatric: alert, normal mood/affect, oriented x 3 Skin: normal color, warm/dry Assessment/Plan Assessment/Plan Assessment/Plan 56-year-old male with metastatic lung cancer, left lower quadrant abdominal pain , enteritis versus inflammatory bowel disease, reducible umbilical hernia Patient's white count within normal range at this time. By exam he does have tenderness in left lower quadrant I do not appreciate any guarding or rebounding. We continue to keep his pain under control with [facility] INSURANCE SPECIALIST. Discussed with Dr. Jacobo would start on some steroids if we feel this is inflammatory bowel disease. Would keep on clear liquids as long as he tolerates. No surgical intervention at this time we'll continue to follow along. Clinical Quality Measures DVT/VTE Risk/Contraindication: Risk Factor Score Per Nursin RFS Level Per Nursing on Admit: 4+=Very High KATHARINE WILCOX DO Jan 22, 2017 18:49
[2017-01-22 20:00] VITALS: BP 146/89
[2017-01-22] MEDS: methylPREDNISolone 40 MG/ML (Solu-MEDROL) VIAL IV SCH (21:27)
[2017-01-23] VITALS (8 sets, daily range): BP systolic 119–151; BP diastolic 78–91
[2017-01-23] MEDS: metroNIDAZOLE 500MG/100ML IVPB 100 ML IV SCH ×3 (00:50→17:15)
[2017-01-23] MEDS: D5 1/2 NS W/KCL 20 MEQ/L 1,000 ML IV SCH ×3 (03:45→15:20)
[2017-01-23 06:10] LABS: BASOPHILS % (AUTO) 0 % (0-10); EOSINOPHILS % (AUTO) 0 % (0-10); LYMPHOCYTES # (AUTO) 0.4 X 10^3 (1.0-4.0); LYMPHOCYTES % (AUTO) 4 % (12-44); MEAN CORPUSCULAR HEMOGLOBIN 32 PG (25-34); MEAN CORPUSCULAR HGB CONC 33 G/DL (32-36); MEAN CORPUSCULAR VOLUME 95 FL (80-99); MEAN PLATELET VOLUME 9.1 FL (7.4-10.4); MONOCYTES # (AUTO) 0.5 X 10^3 (0.0-1.0); MONOCYTES % (AUTO) 5 % (0-12); NEUTROPHILS # (AUTO) 10.5 X 10^3 (1.8-7.8); NEUTROPHILS % (AUTO) 92 % (42-75); PLATELET COUNT 233 10^3/uL (130-400); RED BLOOD COUNT 4.38 10^6/uL (4.35-5.85); RED CELL DISTRIBUTION WIDTH 13.6 % (10.0-14.5); WHITE BLOOD COUNT 11.4 10^3/uL (4.3-11.0)
[2017-01-23 06:33] LABS: BAND NEUTROPHILS 0 %; BASOPHILS % (MANUAL) 0 %; EOSINOPHILS % (MANUAL) 0 %; LYMPHOCYTES % (MANUAL) 5 %; NEUTROPHILS % (MANUAL) 92 %
[2017-01-23 06:47] LABS: ALANINE AMINOTRANSFERASE 26 U/L (0-55); ALBUMIN 3.3 GM/DL (3.2-4.5); ANION GAP 10 MMOL/L (5-14); ASPARTATE AMINO TRANSFERASE 15 U/L (5-34); BILIRUBIN,TOTAL 0.3 MG/DL (0.1-1.0); BLOOD UREA NITROGEN 7 MG/DL (7-18); BUN/CREATININE RATIO 10; CALCIUM 9.5 MG/DL (8.5-10.1); CARBON DIOXIDE 22 MMOL/L (21-32); CHLORIDE 104 MMOL/L (98-107); CREATININE SERUM 0.71 MG/DL (0.60-1.30); GFR ESTIMATED > 60; GLUCOSE 162 MG/DL (70-105); MAGNESIUM 2.1 MG/DL (1.8-2.4); POTASSIUM 4.1 MMOL/L (3.6-5.0); SODIUM 136 MMOL/L (135-145); TOTAL PROTEIN 7.1 GM/DL (6.4-8.2)
[2017-01-23] MEDS: SENNA W/DOCUSATE (SENOKOT S) TABLET PO SCH (08:19)
[2017-01-23] MEDS: FOLIC ACID 1 MG TAB PO SCH (08:19)
[2017-01-23] MEDS: PANTOPRAZOLE 40 MG/10 ML (PROTONIX) VIAL IV SCH ×2 (08:20→20:40)
[2017-01-23] MEDS: methylPREDNISolone 40 MG/ML (Solu-MEDROL) VIAL IV SCH ×2 (08:20→20:40)
[2017-01-23] MEDS: morphine PCA 30 MG/30 ML VIAL IV PRN (08:27)
--- NOTE | 2017-01-23 08:50 | Progress Note (SOAP) ---
Subjective Date Seen by Provider: Jan 23, 2017 Time Seen by Provider: 08:55 Subjective/Events-last exam PT IRRITABLE TODAY - ANGRY ABOUT BEING IN THE HOSPITAL HE STATES THAT HIS PAIN IS MUCH BETTER AND HE WANTS TO BE DISCHARGED SOON POSSIBLE. Review of Systems General: Fatigue, Malaise Pulmonary: Dyspnea, Cough Cardiovascular: No: Chest Pain, Palpitations Gastrointestinal: Abdominal Pain, No: Nausea Neurological: Weakness, No: Confusion Objective Exam Vital Signs Date Time Temp Pulse Resp B/P (MAP) Pulse Ox O2 Delivery O2 Flow Rate FiO2 01/23/17 08:27 18 01/23/17 06:00 18 01/23/17 04:00 97.2 78 19 129/84 94 Room Air 01/23/17 00:00 98.2 74 19 148/91 98 Room Air 01/22/17 21:20 Room Air 01/22/17 20:00 20 01/22/17 20:00 20 01/22/17 20:00 97.5 78 18 146/89 97 Room Air 01/22/17 17:58 20 01/22/17 16:00 97.5 82 20 131/89 96 Room Air 01/22/17 12:00 97.9 80 24 136/76 95 Room Air Capillary Refill : Less Than 3 Seconds General Appearance: WD/WN, Mild Distress HEENT: PERRL/EOMI Neck: Full Range of Motion, Supple Respiratory: Chest Non Tender, Decreased Breath Sounds Cardiovascular: Regular Rate, Rhythm Gastrointestinal: normal bowel sounds, tenderness (LLQ) Neurologic/Psychiatric: Alert, Oriented x3, No Motor/Sensory Deficits, Normal Mood/Affect Skin: Warm/Dry Lymphatic: No Adenopathy Results Lab Laboratory Tests 01/23/17 05:40: White Blood Count 11.4H, Red Blood Count 4.38, Hemoglobin 13.8, Hematocrit 42, Mean Corpuscular Volume 95, Mean Corpuscular Hemoglobin 32, Mean Corpuscular Hemoglobin Concent 33, Red Cell Distribution Width 13.6, Platelet Count 233, Mean Platelet Volume 9.1, Neutrophils (%) (Auto) 92H, Lymphocytes (%) (Auto) 4L , Monocytes (%) (Auto) 5, Eosinophils (%) (Auto) 0, Basophils (%) (Auto) 0, Neutrophils # (Auto) 10.5H, Lymphocytes # (Auto) 0.4L, Monocytes # (Auto) 0.5, Eosinophils # (Auto) 0.0, Basophils # (Auto) 0.0, Neutrophils % (Manual) 92, Lymphocytes % (Manual) 5, Monocytes % (Manual) 3, Eosinophils % (Manual) 0, Basophils % (Manual) 0, Band Neutrophils 0, Blood Morphology Comment NORMAL, Sodium Level 136, Potassium Level 4.1, Chloride Level 104, Carbon Dioxide Level 22, Anion Gap 10, Blood Urea Nitrogen 7, Creatinine 0.71, Estimat Glomerular Filtration Rate > 60, BUN/Creatinine Ratio 10, Glucose Level 162H, Calcium Level 9.5, Magnesium Level 2.1, Total Bilirubin 0.3, Aspartate Amino Transf (AST /SGOT) 15, Alanine Aminotransferase (ALT/SGPT) 26, Alkaline Phosphatase 103, Total Protein 7.1, Albumin 3.3 Assessment/Plan Assessment/Plan Assess & Plan/Chief Complaint ILEUS/ENTERITIS SEVERE ABDOMINAL PAIN METASTATIC LUNG CANCER CHRONIC TOBACCOISM ILEUS WITH SEVERE ABDOMINAL PAIN - ADVANCE DIET TODAY- CONTINUE WITH FLAGYL IV, CONTINUE WITH IV FLUIDS, MONITOR ABDOMINAL SYMPTOMS. - DISCUSSED WITH DR. WILCOX - HE CONTINUES TO RECOMMEND IV STEROIDS, MONITOR SYMPTOMS, CONTINUE WITH FLAGYL AND CLOSE MONITORING. METASTATIC LUNG CANCER - SUPPORTIVE CARE. CONTINUE WITH PALLIATIVE CHEMOTHERAPY. CHRONIC TOBACCOISM - SUPPORTIVE CARE WHILE IN HOSPITAL. PT ANGRY - UPSET ABOUT BEING IN THE HOSPITAL, HE IS WORRIED THAT HE NOW HAS CANCER IN HIS BOWELS. HE REPORTS THAT HE "NEEDS TO KNOW NOW IF I AM GOING TO BE IN THE HOSPITAL OVER THE WEEKEND SO I CAN CANCEL MY DAMN PLANS". HE THEN APOLOGIZED AND STATES THAT HE IS REALLY UPSET AT HIS FAMILY - HIS DAUGHTER HAS KNOWN FOR A WHILE THAT HE IS DYING WITH CANCER, BUT HAS NOT MADE AN EFFORT TO COME DOWN TO SEE HIM, UNTIL THIS WEEKEND AND HE WANTS TO BE OUT OF THE HOSPITAL FOR HER VISIT. Clinical Quality Measures DVT/VTE Risk/Contraindication: Risk Factor Score Per Nursin RFS Level Per Nursing on Admit: 4+=Very High VAN MEJIA MD Jan 23, 2017 08:50
[2017-01-23] MEDS ORDERED: morphine INJ 4 MG/ML 1 ML (VIAL/SYRINGE) IVP PRN (09:00)
[2017-01-23] MEDS: HYDROcodone/APAP 10 MG/325 MG (LORTAB) TAB PO PRN ×2 (14:41→22:24)
--- NOTE | 2017-01-23 17:15 | Progress Note ---
Subjective Date Seen by Provider: Jan 23, 2017 Time Seen by Provider: 08:14 Subjective/Events-last exam Patient states is feeling a little bit better. The pain starts intense it's fairly under control. Patient not passing any flatus or bowel movement. He is tolerating clear liquids. He is not having any nausea or vomiting he states. Patient with no new complaints denies any nausea vomiting fever sweats chills shortness of breath or chest pain. Patient wanting to go home. Objective Exam Vital Signs Date Time Temp Pulse Resp B/P (MAP) Pulse Ox O2 Delivery O2 Flow Rate FiO2 01/23/17 16:00 98.6 96 18 151/83 98 Room Air 01/23/17 12:30 98.0 81 24 124/78 97 Room Air 01/23/17 11:20 98.0 77 20 145/89 96 Room Air 01/23/17 10:20 97.8 67 20 141/84 96 Room Air 01/23/17 10:12 Room Air 01/23/17 08:30 97.8 87 22 119/87 95 Room Air 01/23/17 08:27 18 01/23/17 06:00 18 01/23/17 04:00 97.2 78 19 129/84 94 Room Air 01/23/17 00:00 98.2 74 19 148/91 98 Room Air 01/22/17 21:20 Room Air 01/22/17 20:00 20 01/22/17 20:00 20 01/22/17 20:00 97.5 78 18 146/89 97 Room Air 01/22/17 17:58 20 I & O 01/24/17 07:00 Intake Total 1740 ml Output Total 575 ml Balance 1165 ml Capillary Refill : Less Than 3 Seconds General Appearance: No Apparent Distress, WD/WN HEENT: PERRL/EOMI, Pharynx Normal Neck: Full Range of Motion, Supple Respiratory: Chest Non Tender, No Accessory Muscle Use, No Respiratory Distress Cardiovascular: Regular Rate, Rhythm, No Edema Gastrointestinal: soft, no organomegaly, tenderness (Left lower quadrant less than yesterday), other (Reducible umbilical hernia) Extremity: Normal Capillary Refill, Non Tender, No Calf Tenderness, No Pedal Edema Neurologic/Psychiatric: Alert, Oriented x3, No Motor/Sensory Deficits, Normal Mood/Affect Skin: Warm/Dry, Other (SKIN CHANGES TO FOREHEAD/SCALP ON RIGHT TAOISM) Lymphatic: No Adenopathy Results Lab Laboratory Tests 01/23/17 05:40: White Blood Count 11.4H, Red Blood Count 4.38, Hemoglobin 13.8, Hematocrit 42, Mean Corpuscular Volume 95, Mean Corpuscular Hemoglobin 32, Mean Corpuscular Hemoglobin Concent 33, Red Cell Distribution Width 13.6, Platelet Count 233, Mean Platelet Volume 9.1, Neutrophils (%) (Auto) 92H, Lymphocytes (%) (Auto) 4L , Monocytes (%) (Auto) 5, Eosinophils (%) (Auto) 0, Basophils (%) (Auto) 0, Neutrophils # (Auto) 10.5H, Lymphocytes # (Auto) 0.4L, Monocytes # (Auto) 0.5, Eosinophils # (Auto) 0.0, Basophils # (Auto) 0.0, Neutrophils % (Manual) 92, Lymphocytes % (Manual) 5, Monocytes % (Manual) 3, Eosinophils % (Manual) 0, Basophils % (Manual) 0, Band Neutrophils 0, Blood Morphology Comment NORMAL, Sodium Level 136, Potassium Level 4.1, Chloride Level 104, Carbon Dioxide Level 22, Anion Gap 10, Blood Urea Nitrogen 7, Creatinine 0.71, Estimat Glomerular Filtration Rate > 60, BUN/Creatinine Ratio 10, Glucose Level 162H, Calcium Level 9.5, Magnesium Level 2.1, Total Bilirubin 0.3, Aspartate Amino Transf (AST /SGOT) 15, Alanine Aminotransferase (ALT/SGPT) 26, Alkaline Phosphatase 103, Total Protein 7.1, Albumin 3.3 Assessment/Plan Assessment/Plan Assessment/Plan 56-year-old male with metastatic lung cancer, left lower quadrant abdominal pain , enteritis versus inflammatory bowel disease, reducible umbilical hernia Patient's WBC went up slightly think this is due to being on steroids. Patient still on CRAB FISHERMAN would convert to oral for planning on discharge home. He is less tender but is not passing any flatus or bowel movement would continue to wait to give bowel rest due to the significant inflammation. It starts passing flatus or bowel movement would then slowly advance diet as tolerates. Would continue with current medical regimen no surgical intervention at this time. Clinical Quality Measures DVT/VTE Risk/Contraindication: Risk Factor Score Per Nursin RFS Level Per Nursing on Admit: 4+=Very High KATHARINE WILCOX DO Jan 23, 2017 17:15
[2017-01-24] VITALS: BP 136/79
[2017-01-24] MEDS: D5 1/2 NS W/KCL 20 MEQ/L 1,000 ML IV SCH ×2 (00:25→10:02)
[2017-01-24] MEDS: metroNIDAZOLE 500MG/100ML IVPB 100 ML IV SCH ×3 (01:37→16:59)
[2017-01-24 07:50] VITALS: BP 124/79
[2017-01-24] MEDS ORDERED: METR500T PO (08:09)
[2017-01-24] MEDS ORDERED: PRD20T PO (08:09)
--- NOTE | 2017-01-24 08:12 | Discharge Summary ---
Diagnosis/Chief Complaint Date of Admission Jan 22, 2017 at 09:06 Date of Discharge Discharge Date: Jan 25, 2017 Discharge Time: 1000 Admission Diagnosis Admission Diagnosis ILEUS/ENTERITIS SEVERE ABDOMINAL PAIN METASTATIC LUNG CANCER CHRONIC TOBACCOISM Discharge Diagnosis ILEUS/ENTERITIS SEVERE ABDOMINAL PAIN METASTATIC LUNG CANCER CHRONIC TOBACCOISM Reason Hospital Visit PT IS A 56 Y/O MALE WHO IS KNOWN TO ME FROM CLINIC. HE HAS HISTORY OF NEWLY DIAGNOSED METASTATIC LUNG CANCER. HE HAS METASTATIC DISEASE TO HIS BRAIN, ABDOMEN, LYMPH SYSTEM. HE STATES THAT HE WAS NOT FEELING WELL ON SATURDAY AFTER RETURNING TO HOME FROM HIS CHEMOTHERAPY. HE STATES THAT HE WAS FEELING "OFF" ON SATURDAY AND SATURDAY AND SATURDAY. HE STATES THAT HE HAD STARTED TO DEVELOP ABDOMINAL PAIN ON THE LEFT , THOUGHT PERHAPS THAT HE HAD A KIDNEY STONE, BUT WAS FOUND TO HAVE AN ILEUS AND ENTERITIS ON CT SCAN THROUGH THE EMERGENCY DEPARTMENT. HE WAS UNABLE TO GO HOME DUE TO SEVERE PAIN, AND WAS ADMITTED TO THE HOSPITAL FOR IV PAIN MEDICATION , IV HYDRATION, AND MONITORING OF ABDOMINAL SYMPTOMS. Discharge Summary Discharge Physical Examination Allergies: Coded Allergies: No Known Drug Allergies (Unverified , 01/11/17) Vitals & I&Os General Appearance: Alert, Oriented X3, Cooperative HEENT: Atraumatic Respiratory: Clear to Auscultation Cardiovascular: Regular Rate Abdominal: Normal Bowel Sounds, Soft Extremities: No Clubbing Skin: No Rashes Neuro: Cranial Nerves 3-12 NL Psych/Mental Status: Mental Status NL, Mood NL Hospital Course ILEUS/ENTERITIS SEVERE ABDOMINAL PAIN METASTATIC LUNG CANCER CHRONIC TOBACCOISM ILEUS WITH SEVERE ABDOMINAL PAIN - ADVANCE DIET DID NOT GO WELL FOR PATIENT - INITIALLY - RECOMMEND THAT THE PATIENT ADVANCE DIET TOLERATED. METASTATIC LUNG CANCER - SUPPORTIVE CARE. CONTINUE WITH PALLIATIVE CHEMOTHERAPY. CHRONIC TOBACCOISM - SUPPORTIVE CARE WHILE IN HOSPITAL. RESUME BLAND DIET AT HOME. Discharge Condition at discharge IMPROVED Instructions to patient/family Please see electronic discharge instructions given to patient. Discharge Medications Reviewed and agree with Discharge Medication list on patient's Discharge Instruction sheet Clinical Quality Measures DVT/VTE Risk/Contraindication: Risk Factor Score Per Nursin RFS Level Per Nursing on Admit: 4+=Very High VAN MEJIA MD Jan 24, 2017 08:12
--- NOTE | 2017-01-24 08:12 | Discharge Inst-Complex ---
PDI Med Rec & Follow Up Appt. New Medications: Metronidazole (Flagyl) 500 Mg Tablet 500 MG PO TID for 7 Days, #21 TAB DO NOT DRINK ALCOHOL WHILE TAKING THIS MEDICATION DUE TO MED INDUCING SEVERE NAUSEA AND EMESIS IF ALCOHOL INTAKE OCCURS Prednisone (Prednisone) 20 Mg Tab 20 MG PO DAILY, #22 TAB Take 3 tabs(60mg)daily,decrease by 1/2 tab(10mg)every other day. Continued Medications: Folic Acid (Folic Acid) 1 Mg Tablet 1 MG PO DAILY, TAB Hydrocodone/Acetaminophen (Hydrocodon-Acetaminophn 10-325) 1 Each Tablet 1-2 TAB PO Q6H PRN for PAIN-MODERATE, TAB Oxycodone HCl (Oxycodone HCl) 5 Mg Tablet 5 MG PO Q4H PRN for BREAKTHROUGH PAIN, TAB Sennosides/Docusate Sodium (Senna S Tablet) 1 Each Tablet 1 TAB PO DAILY PRN for CONSTIPATION-6TH LINE, TAB Prescription: Transmitted to Pharmacy Activity, Diet and PDI Resume Normal Activity: Yes Discharge Diet: Other Diet (ADVANCE DIET TOLERATED, IF ABDOMINAL PAIN WITH REGULAR FOOD INTAKE, DECREASE BACK TO A SOFT DIET) Drink 6-8 Glasses of Fluid/Day: Yes Driving Instructions: No Driving for 24 Hours Symptoms to Reoprt to DrMickie: Appetite Changes, Fever Over 101 Degrees F, Pain/ Pressure in Chest For Problems or Questions: Contact Your Physician, Go to Emergency Room VAN MEJIA MD Jan 24, 2017 08:11
[2017-01-24] MEDS: FOLIC ACID 1 MG TAB PO SCH (08:19)
[2017-01-24] MEDS: HYDROcodone/APAP 10 MG/325 MG (LORTAB) TAB PO PRN ×2 (08:19→12:19)
[2017-01-24] MEDS: SENNA W/DOCUSATE (SENOKOT S) TABLET PO SCH (08:19)
[2017-01-24] MEDS: methylPREDNISolone 40 MG/ML (Solu-MEDROL) VIAL IV SCH (08:20)
[2017-01-24] MEDS: PANTOPRAZOLE 40 MG/10 ML (PROTONIX) VIAL IV SCH (08:20)
--- NOTE | 2017-01-24 09:13 | Progress Note (SOAP) ---
Subjective Date Seen by Provider: Jan 24, 2017 Time Seen by Provider: 08:00 Subjective/Events-last exam PT REPORTS THAT HE IS FEELING WORSE TODAY - HE ATE LAST NIGHT - A GRILLED CHEESE AND HAD SEVERE PAIN IN HIS LEFT LOWER ABDOMEN AFTER EATING. HE REPORTS THAT HE CANNOT GO HOME WITH PAIN THIS INTENSE AND WOULD LIKE TO STAY IN THE HOSPITAL AT THIS TIME DUE TO HIS SEVERE PAIN AND INABILITY TO EAT Review of Systems General: Fatigue HEENT: No Head Aches Pulmonary: No Dyspnea, Cough Cardiovascular: No: Chest Pain Gastrointestinal: Abdominal Pain (LWEFT LOWER ABDOMEN), No: Nausea Neurological: Weakness, No: Confusion Objective Exam Vital Signs Date Time Temp Pulse Resp B/P (MAP) Pulse Ox O2 Delivery O2 Flow Rate FiO2 01/24/17 08:28 Room Air 01/24/17 07:50 96.9 61 20 124/79 95 Room Air 01/24/17 00:00 98.6 68 20 136/79 97 Room Air 01/23/17 20:00 97.5 81 20 141/82 98 Room Air 01/23/17 19:55 Room Air 01/23/17 16:00 98.6 96 18 151/83 98 Room Air 01/23/17 12:30 98.0 81 24 124/78 97 Room Air 01/23/17 11:20 98.0 77 20 145/89 96 Room Air 01/23/17 10:20 97.8 67 20 141/84 96 Room Air 01/23/17 10:12 Room Air I & O 01/25/17 07:00 Intake Total 100 ml Balance 100 ml Capillary Refill : Less Than 3 Seconds General Appearance: WD/WN, Mild Distress HEENT: PERRL/EOMI, Pharynx Normal Neck: Full Range of Motion, Supple Respiratory: Chest Non Tender, Lungs Clear, Normal Breath Sounds Cardiovascular: Regular Rate, Rhythm Gastrointestinal: normal bowel sounds, tenderness (IN LEFT LOWER QUAD) Neurologic/Psychiatric: Alert, Oriented x3, No Motor/Sensory Deficits, Normal Mood/Affect Lymphatic: No Adenopathy Assessment/Plan Assessment/Plan Assess & Plan/Chief Complaint ILEUS/ENTERITIS SEVERE ABDOMINAL PAIN METASTATIC LUNG CANCER CHRONIC TOBACCOISM ILEUS WITH SEVERE ABDOMINAL PAIN - ADVANCE DIET DID NOT GO WELL FOR PATIENT - WILL RESUME LIQUID DIET, CONTINUE WITH FLAGYL IV, CONTINUE WITH IV FLUIDS, MONITOR ABDOMINAL SYMPTOMS. - INCREASE THE STEROIDS FROM 40MG BID TO 62.5MG IV Q6 HOURS, MONITOR SYMPTOMS. METASTATIC LUNG CANCER - SUPPORTIVE CARE. CONTINUE WITH PALLIATIVE CHEMOTHERAPY. CHRONIC TOBACCOISM - SUPPORTIVE CARE WHILE IN HOSPITAL. Clinical Quality Measures DVT/VTE Risk/Contraindication: Risk Factor Score Per Nursin RFS Level Per Nursing on Admit: 4+=Very High VAN MEJIA MD Jan 24, 2017 09:13
[2017-01-24] MEDS ORDERED: methylPREDNISolone 40 MG/ML (Solu-MEDROL) VIAL IV NR (09:15)
[2017-01-24] MEDS: methylPREDNISolone 125 MG (Solu-MEDROL) VIAL IV SCH ×2 (12:13→17:00)
--- NOTE | 2017-01-24 15:56 | Progress Note ---
Subjective Date Seen by Provider: Jan 24, 2017 Time Seen by Provider: 15:51 Subjective/Events-last exam Patient doing well. He stated that this morning he had a lower left lower quadrant abdominal pain but that is resolved. Patient's tolerating soft diet. He is passing flatus and feeling better. He has no other complaints at this time he denies any nausea vomiting fever sweats chills shortness of breath or chest pain. Objective Exam Vital Signs Date Time Temp Pulse Resp B/P (MAP) Pulse Ox O2 Delivery O2 Flow Rate FiO2 01/24/17 08:28 Room Air 01/24/17 07:50 96.9 61 20 124/79 95 Room Air 01/24/17 00:00 98.6 68 20 136/79 97 Room Air 01/23/17 20:00 97.5 81 20 141/82 98 Room Air 01/23/17 19:55 Room Air 01/23/17 16:00 98.6 96 18 151/83 98 Room Air I & O 01/25/17 07:00 Intake Total 2020 ml Output Total 1350 ml Balance 670 ml Capillary Refill : Less Than 3 Seconds General Appearance: WD/WN HEENT: PERRL/EOMI, Pharynx Normal Neck: Full Range of Motion, Supple Respiratory: Chest Non Tender, Lungs Clear, Normal Breath Sounds Cardiovascular: Regular Rate, Rhythm Gastrointestinal: normal bowel sounds, tenderness (IN LEFT LOWER QUAD significantly improved), other (reducible umbilical hernia) Extremity: Normal Capillary Refill, Non Tender, No Calf Tenderness, No Pedal Edema Neurologic/Psychiatric: Alert, Oriented x3, No Motor/Sensory Deficits, Normal Mood/Affect Skin: Warm/Dry Lymphatic: No Adenopathy Assessment/Plan Assessment/Plan Assessment/Plan Abdominal pain left lower quadrant, ileus versus enteritis infectious versus inflammatory bowel disease. Reducible umbilical hernia, metastatic lung cancer Patient tolerating diet this afternoon. He is stating he is wanting to go home if he does continue to tolerate diet. I informed him I would stick to more of a full liquid diet for 2 days and then slowly advance, he agrees with. No surgical intervention, will follow the patient unless discharged home later today. Clinical Quality Measures DVT/VTE Risk/Contraindication: Risk Factor Score Per Nursin RFS Level Per Nursing on Admit: 4+=Very High KATHARINE WILCOX DO Jan 24, 2017 15:56
[2017-01-24 16:00] VITALS: BP 114/79
== END 2017-01-24 18:10 | disposition home or self-care (01) | DRG 389 ==
LOC: EDUNIT# 14:25 → ER 14:27 → UNDOADMOB 18:28 → 4TH 18:28 → INTOOBSV 01-22 09:06 → OBSVTOIN 01-22 09:06 → 4TH 01-22 15:33 → UNDODISIN 01-24 18:10
PROVIDERS: ADMIT Family Medicine; ATTEND Family Medicine
DX: A09 Infectious gastroenteritis and colitis, unspecified; C78.00 Secondary malignant neoplasm of unspecified lung; K42.9 Umbilical hernia without obstruction or gangrene; K56.7 Ileus, unspecified; F17.210 Nicotine dependence, cigarettes, uncomplicated; C79.31 Secondary malignant neoplasm of brain; C79.51 Secondary malignant neoplasm of bone; C34.90 Malignant neoplasm of unspecified part of unspecified bronchus or lung; C79.89 Secondary malignant neoplasm of other specified sites; C79.70 Secondary malignant neoplasm of unspecified adrenal gland; C77.9 Secondary and unspecified malignant neoplasm of lymph node, unspecified; Z66 Do not resuscitate
CPT/HCPCS: 36415; 74177; 80053; 81000; 83690; 83735; 85007; 85027; 85610; 85730; 96361; 96374; 96375; 96376; G0378

== ENCOUNTER 2017-02-27 14:03 | Outpatient (RCR) | payer MEDICAID, OTHER ==
[~2017-02-27 14:03] MED LIST changes: +FOLI1TAB24 PO; +HYDR-3820 PO; +METR500T PO; +PRD20T PO; +SENN-1 PO
== END 2017-05-28 | disposition home or self-care (01) ==
LOC: ONC 14:03
PROVIDERS: ATTEND Internal Medicine Hematology & Oncology
DX: C34.32 Malignant neoplasm of lower lobe, left bronchus or lung (principal); C78.01 Secondary malignant neoplasm of right lung; C78.02 Secondary malignant neoplasm of left lung; C79.31 Secondary malignant neoplasm of brain; C79.51 Secondary malignant neoplasm of bone; C79.70 Secondary malignant neoplasm of unspecified adrenal gland; F17.210 Nicotine dependence, cigarettes, uncomplicated
CPT/HCPCS: 99214